=== PATIENT | male | born 1980 | race African-American/Black ===

== ENCOUNTER 2024-02-17 04:59 | Emergency (ER) | payer MEDICAID ==
[~2024-02-17] VITALS: Ht 175.3 cm; Wt 92.4 kg
[2024-02-17 05:10] VITALS: BP 138/83; PULSE 64; RESP 18; TEMP 97.9; O2SAT 98
[2024-02-17] MEDS ORDERED: TRIA0.02 TOP (06:51)
[2024-02-17] MEDS ORDERED: CEPH500C PO (06:51)
== END 2024-02-17 07:02 | disposition home or self-care (01) ==
LOC: ER 04:59
DX: S50.361A Insect bite (nonvenomous) of right elbow, initial encounter (principal); W57.XXXA Bitten or stung by nonvenomous insect and other nonvenomous arthropods, initial encounter; Y93.89 Activity, other specified; Y92.89 Other specified places as the place of occurrence of the external cause; Y99.8 Other external cause status